=== PATIENT | male | born 1970 | race African-American/Black ===

== ENCOUNTER 2019-02-17 19:41 | Emergency (ER) | payer MEDICARE, MEDICAID ==
[~2019-02-17] VITALS: Ht 182.9 cm; Wt 100.0 kg
[2019-02-17] MEDS ORDERED: TRIM100T11 PO (19:52)
[2019-02-17] MEDS ORDERED: KETOROLAC 60MG/2ML VIAL IM ONE (21:30)
[2019-02-17 22:15] VITALS: BP 129/80
== END 2019-02-17 22:17 | disposition home or self-care (01) ==
LOC: ER 19:41
DX: M54.6 Pain in thoracic spine (principal); V49.49XA Driver injured in collision with other motor vehicles in traffic accident, initial encounter; Y93.89 Activity, other specified; Y92.89 Other specified places as the place of occurrence of the external cause; Y99.8 Other external cause status
CPT/HCPCS: 96372; 99283; J1885